=== PATIENT | female | born 1940 | race Caucasian/White ===

== ENCOUNTER 2018-02-09 08:11 | Day surgery (SDC) | payer OTHER ==
[~2018-02-09] VITALS: Ht 162.6 cm; Wt 68.0 kg
[~2018-02-09 08:11] MED LIST: PROTONIX40 M1 PO; [UNRECOGNIZED DRUG - OTHER] PO; [UNRECOGNIZED DRUG - OTHER] PO
[2018-02-10] MEDS ORDERED: ULTRACET PO (10:13)
[2018-02-10] MEDS ORDERED: RECTICARE30 GM TOP (10:13)
[2018-02-10] MEDS ORDERED: INTESTINEX680 M1 PO (10:13)
== END 2018-02-10 08:00 | disposition home or self-care (01) ==
LOC: O/R 08:11 → SURH 08:11 → CIR.AMB 08:11 → EDSTATUS 10:30 → SURH 10:30 → O/R 17:34 → SURH 17:34 → CIR.AMB 02-10 08:00 → SURH 02-10 13:30 → O/R 02-10 13:30
DX: N81.6 Rectocele (principal); K59.02 Outlet dysfunction constipation; I10 Essential (primary) hypertension